=== PATIENT | male | born 1960 | race Caucasian/White ===

== ENCOUNTER 2018-03-05 20:12 | Emergency (ER) | payer OTHER ==
[2018-03-05] MEDS ORDERED: ASPIRIN 325 MG TABLET ONE (20:19)
[2018-03-05 20:33] LABS: BASOPHILS % (AUTO) 0.3 % (0.0-5.0); EOSINOPHILS % (AUTO) 1.4 % (0.0-8.0); HEMATOCRIT 40.2 % (42-54); MEAN CORPUSCULAR HEMOGLOBIN 30.9 pg (27.0-33.0); MEAN CORPUSCULAR HGB CONC 34.2 g/dL (32.0-36.0); MEAN CORPUSCULAR VOLUME 90.3 fL (79-99); MONOCYTES % (AUTO) 8.8 % (3.0-13.0); NEUTROPHILS % (AUTO) 79.5 % (40.0-77.0); PLATELET COUNT (AUTO) 161 K/uL (130-400); RED BLOOD CELL COUNT(AUTO) 4.45 MIL/uL (4.50-6.20); WHITE BLOOD COUNT (AUTO) 9.8 K/uL (4.8-10.8)
[2018-03-05 20:53] LABS: CREATININE 0.9 mg/dL (0.5-1.5); POTASSIUM 3.7 mmol/L (3.5-5.1)
[2018-03-05 20:55] LABS: INR 0.94 (0.85-1.15); PARTIAL THROMBOPLASTIN TIME 26.5 SEC (26.3-35.5); PROTHROMBIN TIME 9.9 SEC (9.6-11.6)
[2018-03-05 21:04] LABS: ALBUMIN 3.8 g/dL (3.5-5.0); BILIRUBIN,TOTAL 0.2 mg/dL (0.2-1.0); TOTAL PROTEIN, SERUM 6.9 g/dL (6.0-8.3)
[2018-03-05 21:07] LABS: B-TYPE NATRIURETIC PEPTIDE 10 pg/mL (0-100)
[2018-03-05] MEDS ORDERED: KETOROLAC TROMETHAMINE 30MG/ML ONE (22:12)
== END 2018-03-05 23:15 | disposition home or self-care (01) ==
LOC: EDH 20:12
DX: T78.49XA Other allergy, initial encounter (principal); M94.0 Chondrocostal junction syndrome [Tietze]; R07.89 Other chest pain; X58.XXXA Exposure to other specified factors, initial encounter
CPT/HCPCS: 36415; 71045; 80053; 82550; 83874; 83880; 84484 ×2; 85025; 85610; 85730; 93005; 94761; 96372; 96374; 99285; J1885